=== PATIENT | male | born 1930 | race Caucasian/White ===

== ENCOUNTER 2016-02-10 15:56 | Observation (INO) | payer MEDICARE ==
[~2016-02-10] VITALS: Ht 177.8 cm; Wt 85.4 kg
[~2016-02-10 15:56] MED LIST: ASPI325T32 PO; CEPH500C PO; CLOP75TA3 PO; METO25TA6 PO; PRA20 PO
[2016-02-10 15:59] VITALS: PULSE 77; RESP 18; O2SAT 98
[2016-02-10 16:44] LABS: BASOPHILS % (AUTO) 0.4 % (0-3); EOSINOPHILS % (AUTO) 3.3 % (0-5); MONOCYTES % (AUTO) 10.4 % (4-12); Mean Corpuscular Hemoglobin 31.6 pg (27.0-35.0); Mean Corpuscular Volume 94.9 fL (81-100); NEUTROPHILS % (AUTO) 55.8 % (40-74); Platelet Count 263 bil/L (150-400)
--- NOTE | 2016-02-10 17:04 | DRSVH ---
PROCEDURE: CT BRAIN WITHOUT CONTRAST ([id number]) INDICATIONS: right sided weakness, confusion TECHNIQUE: Noncontrast 4.5 mm thick angled axial sections acquired from the foramen magnum to the vertex, with c oronal reformats. COMPARISON: None. FINDINGS: Image quality: Excellent. CSF spaces: Basal cisterns are patent. No extra-axial fluid collections. The ventricles are symmet марина in size and shape. Brain: No intracranial bleeds or masses. There is cerebral volume loss for age, with resultant vent ricular and sulcal prominence. There are periventricular and deep white matter chronic small vessel ischemic changes. There is intracranial internal carotid artery atherosclerosis. Skull and face: Calvarium and visualized facial bones appear intact, without suspicious lesions. Pos tsurgical changes noted in the right ocular globe; please correlate with surgical history. Soft tissu e density mass noted in the right ocular globe. Sinuses: Scattered opacities noted in the ethmoid air cells. mastoids are clear. IMPRESSION: 1. No acute intracranial disease process. 2. Postsurgical changes in the right ocular globe with soft tissue density mass within the globe. Ple ase correlate with clinical findings and surgical history. Dictated by: Selam Redding MD, PhD on 02/10/2016 at 17:03 Approved by: Selam Redding MD, PhD on 02/10/2016 at 17:03
[2016-02-10 17:12] LABS: INR 0.94 ratio
[2016-02-10 17:21] LABS: TROPONIN T < 0.010 ug/L (0.0-0.011)
--- NOTE | 2016-02-10 17:41 | ED.REPORT ---
HPI-Neurologic Deficit Date of Service Feb 10, 2016 ED Provider: Gary Chapman DO The patient is an 85 year old male with history of coronary artery disease s/p stenting who was sent to the emergency department by Dr. Porter who was concerned the patient may have had a stroke. The patient has experienced dizziness over the last 3 days. This morning he was unable to get out of bed due to right upper and lower extremity weakness. His symptoms have been intermittent throughout the day. He has intermittently throughout the day required his walker to ambulate. He is currently feeling normal. He has been taking Cipro for the last 3 weeks for prostatitis. He stopped his aspirin when he was started on this antibiotic. Nursing Notes Stated Complaint: POSSIBLE STROKE Chief Complaint: Stroke Symptoms Nursing Notes Reviewed: Yes Allergies: Coded Allergies: Penicillins (Verified Allergy, Unknown, 02/10/16) Scheduled Aspirin (Aspirin) 81 Mg Tablet 81 MG PO DAILY Ciprofloxacin (Cipro) 500 Mg Tablet 500 MG PO BID Metoprolol Tartrate (Metoprolol Tartrate) 25 Mg Tablet 12.5 MG PO BID Pravastatin (Pravastatin) 40 Mg Tablet 40 MG PO DAILY Tamsulosin (Flomax) 0.4 Mg Capsule 0.4 MG PO DAILY General Time Seen by Provider: 17:42 Chief Complaint Other (right-sided weakness) Hx Obtained From: Patient Arrived By: Wheelchair Sudden in Onset?: Yes Onset Occurred: 13 - 16 hours ago Symptom Duration: Intermittent Progression Since Onset: Intermittent Severity: Current: No pain currently Severity: Maximum: No pain Additional Notes: +dizziness Pertinent Negative: Pt denies other symptoms Recent Healthcare: No recent hospitalization Similar Sx Previous: No Risk Factors NIH Stroke Scale Level of Consciousness: Alert and responsive (0) Ask Month & Age: Both questions right (0) Open/Close Eyes/Hand Contingents Supervisor: Performs both tasks (0) Horizontal EO Movements: None (0) Visual [place]: No visual loss (0) Facial Palsy: Normal symmetry (0) Right Arm Motor Drift (10s): No drift 10 sec (0) Left Arm Motor Drift (10s): No drift 10 sec (0) Right Leg Motor Drift (5s): No drift 5 sec (0) Left Leg Motor Drift (5s): No drift 5 sec (0) Limb Ataxia FNF/Heel-Kendall: No ataxia (0) Sensation (Arms/Legs/Face): No sensory loss (0) Language Aphasia: No aphasia, normal (0) Dysarthria: No dysarthria, normal (0) Extinction/Inattention: No exctinct/inattent (0) NIHSS Score: 0 Time NIHSS Performed: 17:58 Date NIHSS Performed: Feb 10, 2016 Past Medical History Past Medical History Notes: It Consulting Manager: Dr. Santoyo Past Medical History Coronary artery stent s/p stenting Prostate issues Past Surgical History Cardiac stenting Bilateral shoulder surgery Family History Noncontributory Smoking History Former Smoker Social History Alcohol Use: 1-3 per day Drug Use: Denies drug use Other Social History: Good social support, , Local resident Ambulatory Status Independent Review of Systems Constitutional: Denies: Chills, Fever Respiratory: Denies: Non-productive cough, Shortness of breath Cardiovascular: Denies: Chest pain GI: Denies: Abdominal pain, Vomiting Skin: Denies Rash Neurologic: Reports: Dizziness, Focal weakness, Problem walking, Denies: Headache Complete sys rev & neg: except as marked. Physical Exam Initial Vital Signs Vital Signs (First) Date Time Temp Pulse Resp B/P Pulse Ox O2 Delivery O2 Flow Rate FiO2 02/10/16 15:59 37.0 77 18 98 Room Air 02/10/16 19:13 144/69 Initial VS: Reviewed ENT: Mucous membranes moist, Conjunctiva normal, No scleral icterus Neck: Supple, Non-tender, Full range of motion Abdomen / GI: Soft, Non-tender, No guarding, No rebound, No distention Lymphatic: No lymphadenopathy Extremities: Vascular intact, Neuro intact, No swelling, No tenderness Skin: Warm, Dry, No cyanosis Psychiatric: Mood/affect normal, Behavior normal, Normal thought content General/Constitutional: Awake, Alert Head / Eyes: Atraumatic, Normocephalic, PERRL, EOMI, No nystagmus Respiratory / Chest: Atraumatic, Breath sounds NL, Breath sounds = bilat, No respiratory distress, No rales, No rhonchi, No wheezing Cardiovascular: Heart rate NL, Regular rhythm, Heart sounds NL, No murmurs, No rubs, Peripheral circulation NL Neurologic: Oriented X3, Speech NL, No motor deficits, No sensory deficits, CN II - XII intact, Cerebellar NL, Memory NL SEE NIH STROKE SCALE ABOVE FOR MORE DETAIL, score: 0 Interpretation & Diagnostics Lab Results Interpretation Result Diagram: 02/10/16 1635 02/10/16 1635 Test 02/10/16 16:35 02/10/16 18:45 White Blood Count 4.5th/mm3 (3.8-10.1) Red Blood Count 4.31mil/mm3 (4.40-5.80) Hemoglobin 13.6g/dL (13.8-17.2) Hematocrit 40.9% (41.0-50.0) Mean Corpuscular Volume 94.9fL (81-100) Mean Corpuscular Hemoglobin 31.6pg (27.0-35.0) Mean Corpuscular Hemoglobin Concent 33.3% (32.0-37.0) Red Cell Distribution Width 12.6% (12.3-15.4) Platelet Count 263bil/L (150-400) Neutrophils (%) (Auto) 55.8% (40-74) Lymphocytes (%) (Auto) 29.9% (14-46) Monocytes (%) (Auto) 10.4% (4-12) Eosinophils (%) (Auto) 3.3% (0-5) Basophils (%) (Auto) 0.4% (0-3) Prothrombin Time 10.0sec (8.1-12.5) Prothromb Time International Ratio 0.94ratio Activated Partial Thromboplast Time 26.1sec (22.8-33.0) Sodium Level 139mEq/L (134-144) Potassium Level 4.3mEq/L (3.5-5.2) Chloride Level 100mEq/L (97-108) Carbon Dioxide Level 28mmol/L (18-29) Blood Urea Nitrogen 14mg/dL (8-27) Creatinine 0.78mg/dL (0.76-1.27) Estimat Glomerular Filtration Rate 101mL/min (>59) Glucose Level 117mg/dL (60-99) Calcium Level 9.4mg/dL (8.5-10.1) Total Bilirubin 0.3mg/dL (0.0-1.2) Aspartate Amino Transf (AST/SGOT) 28U/L (0-50) Alanine Aminotransferase (ALT/SGPT) 28U/L (0-44) Alkaline Phosphatase 81U/L (25-160) Troponin T < 0.010ug/L (0.0-0.011) Total Protein 7.4g/dL (6.4-8.4) Albumin 4.2g/dL (3.4-5.0) Hold Jasso Top Tube Received (Received) Urine Color Bloody (YELLOW) Urine Appearance Hazy (CLEAR,HAZY) Urine pH 6.0 (5.0-8.0) Urine Specific [place] 1.015 (1.003-1.035) Urine Protein Negativemg/dL (NEG,TRACE) Urine Glucose (UA) Negativemg/dL (NEGATIVE) Urine Ketones Negativemg/dL (NEGATIVE) Urine Occult Blood Large (NEGATIVE) Urine Nitrite Negative (NEGATIVE) Urine Bilirubin Negative (NEGATIVE) Urine Urobilinogen Normalmg/dL (NORMAL) Urine Leukocyte Esterase Negative (NEGATIVE) Urine RBC 11-50/hpf (0-2) Urine WBC 0-5/hpf (0-5) Urine Epithelial Cells None/hpf (NONE-MOD) Urine Crystals None seen (NONE SEEN) Urine Bacteria Few/hpf (NONE-FEW) Urine Hyaline Casts None/lpf (NONE) Urine Granular Casts None seen (NONE SEEN) Urine Waxy Casts None seen (NONE SEEN) Urine Red Blood Cell Casts None seen (NONE SEEN) Urine White Blood Cell Casts None seen (NONE SEEN) Urine Mucus None seen (None Seen) Urine Trichomonas None seen (NONE SEEN) Urine Yeast None (NONE SEEN) Urinalysis Comment None Urine Culture Reflexed Indicated ECG Interpretation ECG Interpretation: Sinus rhythm with a rate of 69 Time: 18:02 Interpreted by: ED physician X-Ray Chest Interpretation Chest Xray Interpretation: IMPRESSION: No acute cardiopulmonary disease process. Dictated by: Selam Redding MD, PhD on 02/10/2016 at 19:03 Interpretation / Wet Read by: Interpret - Radiologist CT Head Interpretation IMPRESSION: 1. No acute intracranial disease process. 2. Postsurgical changes in the right ocular globe with soft tissue density mass within the globe. Please correlate with clinical findings and surgical history. Dictated by: Selam Redding MD, PhD on 02/10/2016 at 17:03 Study: Head CT no contrast Interpretation / Wet Read by: Interpret - Radiologist Re-Eval/Medical Decision Med Decision/Clinical Course Concern for TIA, patient will be admitted. Source of Hx: Old records Re-Evaluation/Progress : Time of Eval: 18:00 Re-Evaluation/Progress Note: Discussed plan for admission. All questions were addressed. Consultation : Referral / Consult Name: Kaylah Avila MD Consulted With: Hospitalist Call Returned at: 19:26 Stitch Bonding Machine Operator: Will see patient, Agrees with eval, Agrees with plan, Accepts admit Counseled Regarding: Diagnosis, Lab results, Need for admission Discharge & Departure Impression: Primary Impression: Transient ischemic attack Transient cerebral ischemia type: unspecified Qualified Code: G45.9 - Transient cerebral ischemic attack, unspecified Disposition: ADMITTED TO HOSPITAL Discharge Condition All VS Reviewed: Yes Condition: Stable Referrals: Shaylee Santoyo MD, Eric R MD Scribe Attestation Portions of this note were transcribed by Elvia Byrne. I, Dr. Chapman personally performed the history, physical exam and medical decision-making; I reviewed and confirmed the accuracy of the information in the transcribed note. Signed by: Catherine Alonzo, 02/10/16 and 1930. copies to: Shaylee Santoyo MD; Christophe Porter MD, Timothy S DO Feb 10, 2016 17:41 Elvia Byrne Feb 10, 2016 17:48
[2016-02-10] MEDS ORDERED: 0.9% Sodium Chloride 500 ML IV ONE (18:10)
[2016-02-10] MEDS ORDERED: TAMS0.4C98 PO (18:46)
[2016-02-10] MEDS ORDERED: ASPI-973 PO (18:46)
[2016-02-10] MEDS ORDERED: PRAV40TA PO (18:46)
[2016-02-10] MEDS ORDERED: CIPR-231 PO (18:46)
--- NOTE | 2016-02-10 19:04 | DRSVH ---
PROCEDURE: X-RAY CHEST, TWO VIEWS ([id number]) INDICATIONS: Transient ischemic Accident TECHNIQUE: 2 views of the chest were acquired. COMPARISON: None. FINDINGS: Surgical changes and devices: None. Lungs and pleura: No pleural effusions or pneumothorax. Lungs are clear. Mediastinum: Mediastinal contours are normal. Heart size is normal. Bones and chest wall: No suspicious bony abnormalities. Soft tissues appear unremarkable. IMPRESSION: No acute cardiopulmonary disease process. Dictated by: Selam Redding MD, PhD on 02/10/2016 at 19:03 Approved by: Selam Redding MD, PhD on 02/10/2016 at 19:03
[2016-02-10 19:13] VITALS: BP 144/69; PULSE 65; RESP 18; O2SAT 95
[2016-02-10 19:14] LABS: APPEARANCE,URINE HAZY (CLEAR,HAZY); COLOR,URINE BLOODY (YELLOW); OCCULT BLOOD,URINE LARGE (NEGATIVE); UROBILINOGEN,URINE NORMAL (NORMAL)
[2016-02-10] MEDS ORDERED: Ondansetron 2 mg/mL 2 mL Inj IVPUSH PRN (19:30)
[2016-02-10] MEDS ORDERED: Alum-Mag Hydrox-Simeth 30 mL Suspension PO PRN ×2 (19:30→20:45)
[2016-02-10] MEDS ORDERED: Ondansetron 2 mg/mL 2 mL Inj IV PRN (20:45)
[2016-02-10] MEDS ORDERED: Polyethylene Glycol (PEG) 17 Gm Powder PO PRN (20:45)
[2016-02-10 21:14] VITALS: BP 182/81; PULSE 68; RESP 20; O2SAT 92
--- NOTE | 2016-02-10 21:17 | PCM.HPMED ---
Subjective Date of Service Feb 10, 2016 Primary Provider: Admitting Physician: Kaylah Avila MD Primary Care Physician: Isaac Barrios MD Attending Physician: Kaylah Avila MD Admit Status: From the Emergency Department, 23-Hour Observation Chief Complaint: Woke up this morning with right sided weakness History of Present Illness: This is an 85-year-old male with a history of coronary artery disease who presented to his primary care doctor's office Dr. Porter with complaints of feeling lightheaded over the past 3 days and woke up this morning with right arm and leg weakness. By the time he presented to the emergency room he had no deficits. Patient did stop his aspirin for the past 2 weeks as he was placed on Cipro for prostatitis over the last 3 weeks. Denies any chest pain denies any fevers or chills. Denies any slurred speech or visual disturbances. Any prior history of similar. Denies headache. Eyes any recent falls or trauma. He notes that he did require using his walker to ambulate better because of the right sided weakness. Evaluation in the emergency room includes CT scan of head without contrast which reveals no acute intracranial disease process. There are postsurgical changes in the right ocular globe with soft tissue density mass within the globe. Patient reportedly did have prior surgery there. Review of Systems: All other review of systems are reviewed and are negative. Allergies Coded Allergies: Penicillins (Verified Allergy, Unknown, 02/10/16) Home Medications Scheduled Aspirin (Aspirin) 81 Mg Tablet 81 MG PO DAILY Ciprofloxacin (Cipro) 500 Mg Tablet 500 MG PO BID Metoprolol Tartrate (Metoprolol Tartrate) 25 Mg Tablet 12.5 MG PO BID Pravastatin (Pravastatin) 40 Mg Tablet 40 MG PO DAILY Tamsulosin (Flomax) 0.4 Mg Capsule 0.4 MG PO DAILY PMH Recent history of prostatitis Hyperlipidemia History of coronary artery disease with stenting History of bilateral shoulder surgery Family History Patient denies any family history of cardiac or neurovascular disease. Social History Hx Alcohol Use: Yes ("2-3 drinks a day") Hx Substance Use: No Smoking Status: Former Smoker Living Arrangement: with Family Exam Vital Signs Vital Sign - Last Date Time Temp Pulse Resp B/P Pulse Ox O2 Delivery O2 Flow Rate FiO2 02/10/16 19:13 65 18 144/69 95 Room Air 02/10/16 15:59 37.0 Exam Constitutional: Elderly man in no acute distress Head: Normocephalic atraumatic Eyes: PERRLA DC, EOMI Mouth: No lesions Neck: Carotids 2+ over 4 without bruits bilaterally Chest: Clear to auscultation Cor: Regular rate and rhythm S1-S2 without murmur Abdomen: Soft nontender bowel sounds present Extremities: No pedal edema Skin: No rashes Psych: Mood and affect are appropriate Neuro: Alert and oriented 3, motor and sensory are intact bilaterally. Lab and Diagnostics Labs Laboratory Tests 72 Hours Test 02/10/16 16:35 02/10/16 18:45 White Blood Count 4.5th/mm3 (3.8-10.1) Red Blood Count 4.31mil/mm3 (4.40-5.80) Hemoglobin 13.6g/dL (13.8-17.2) Hematocrit 40.9% (41.0-50.0) Mean Corpuscular Volume 94.9fL (81-100) Mean Corpuscular Hemoglobin 31.6pg (27.0-35.0) Mean Corpuscular Hemoglobin Concent 33.3% (32.0-37.0) Red Cell Distribution Width 12.6% (12.3-15.4) Platelet Count 263bil/L (150-400) Neutrophils (%) (Auto) 55.8% (40-74) Lymphocytes (%) (Auto) 29.9% (14-46) Monocytes (%) (Auto) 10.4% (4-12) Eosinophils (%) (Auto) 3.3% (0-5) Basophils (%) (Auto) 0.4% (0-3) Prothrombin Time 10.0sec (8.1-12.5) Prothromb Time International Ratio 0.94ratio Activated Partial Thromboplast Time 26.1sec (22.8-33.0) Sodium Level 139mEq/L (134-144) Potassium Level 4.3mEq/L (3.5-5.2) Chloride Level 100mEq/L (97-108) Carbon Dioxide Level 28mmol/L (18-29) Blood Urea Nitrogen 14mg/dL (8-27) Creatinine 0.78mg/dL (0.76-1.27) Estimat Glomerular Filtration Rate 101mL/min (>59) Glucose Level 117mg/dL (60-99) Calcium Level 9.4mg/dL (8.5-10.1) Total Bilirubin 0.3mg/dL (0.0-1.2) Aspartate Amino Transf (AST/SGOT) 28U/L (0-50) Alanine Aminotransferase (ALT/SGPT) 28U/L (0-44) Alkaline Phosphatase 81U/L (25-160) Troponin T < 0.010ug/L (0.0-0.011) Total Protein 7.4g/dL (6.4-8.4) Albumin 4.2g/dL (3.4-5.0) Hold Jasso Top Tube Received (Received) Urine Color Bloody (YELLOW) Urine Appearance Hazy (CLEAR,HAZY) Urine pH 6.0 (5.0-8.0) Urine Specific [place] 1.015 (1.003-1.035) Urine Protein Negativemg/dL (NEG,TRACE) Urine Glucose (UA) Negativemg/dL (NEGATIVE) Urine Ketones Negativemg/dL (NEGATIVE) Urine Occult Blood Large (NEGATIVE) Urine Nitrite Negative (NEGATIVE) Urine Bilirubin Negative (NEGATIVE) Urine Urobilinogen Normalmg/dL (NORMAL) Urine Leukocyte Esterase Negative (NEGATIVE) Urine RBC 11-50/hpf (0-2) Urine WBC 0-5/hpf (0-5) Urine Epithelial Cells None/hpf (NONE-MOD) Urine Crystals None seen (NONE SEEN) Urine Bacteria Few/hpf (NONE-FEW) Urine Hyaline Casts None/lpf (NONE) Urine Granular Casts None seen (NONE SEEN) Urine Waxy Casts None seen (NONE SEEN) Urine Red Blood Cell Casts None seen (NONE SEEN) Urine White Blood Cell Casts None seen (NONE SEEN) Urine Mucus None seen (None Seen) Urine Trichomonas None seen (NONE SEEN) Urine Yeast None (NONE SEEN) Urinalysis Comment None Urine Culture Reflexed Indicated Result Diagram: 02/10/16 1635 02/10/16 163 X-Rays, CTs and MRIs Patient Name: ARSENIO PALMER MR#: [id number] Location: [facility] [place] Ordering Phys: Gary Chapman DO Date of Service: 02/10/161806 PROCEDURE: X-RAY CHEST, TWO VIEWS ([id number]) INDICATIONS: Transient ischemic Accident TECHNIQUE: 2 views of the chest were acquired. COMPARISON: None. FINDINGS: Surgical changes and devices: None. Lungs and pleura: No pleural effusions or pneumothorax. Lungs are clear. Mediastinum: Mediastinal contours are normal. Heart size is normal. Bones and chest wall: No suspicious bony abnormalities. Soft tissues appear unremarkable. IMPRESSION: No acute cardiopulmonary disease process. Dictated by: Selam Redding MD, PhD on 02/10/2016 at 19:03 Approved by: Selam Redding MD, PhD on 02/10/2016 at 19:03 Patient Name: ARSENIO PALMER MR#: [id number] Location: [facility] [place] Ordering Phys: ANA NEWBY MD Date of Service: 02/10/16 1608 PROCEDURE: CT BRAIN WITHOUT CONTRAST ([id number]) INDICATIONS: right sided weakness, confusion TECHNIQUE: Noncontrast 4.5 mm thick angled axial sections acquired from the foramen magnum to the vertex, with coronal reformats. COMPARISON: None. FINDINGS: Image quality: Excellent. CSF spaces: Basal cisterns are patent. No extra-axial fluid collections. The ventricles are symmetric in size and shape. Brain: No intracranial bleeds or masses. There is cerebral volume loss for age , with resultant ventricular and sulcal prominence. There are periventricular and deep white matter chronic small vessel ischemic changes. There is intracranial internal carotid artery atherosclerosis. Skull and face: Calvarium and visualized facial bones appear intact, without suspicious lesions. Postsurgical changes noted in the right ocular globe; please correlate with surgical history. Soft tissue density mass noted in the right ocular globe. Sinuses: Scattered opacities noted in the ethmoid air cells. mastoids are clear. IMPRESSION: 1. No acute intracranial disease process. 2. Postsurgical changes in the right ocular globe with soft tissue density mass within the globe. Please correlate with clinical findings and surgical history. Dictated by: Selam Redding MD, PhD on 02/10/2016 at 17:03 Approved by: Selam Redding MD, PhD on 02/10/2016 at 17:03 12-lead ECG Sinus rhythm at a rate of 69 ,no acute abnormalities identified. Assessment & Plan # Right sided hemiparesis, acute, present on admission but resolved Possible TIA and will place on TIA protocol. Was not taking aspirin over the past few weeks so we will reinitiate. Change from Pravachol to atorvastatin as the antihyperlipidemic agent. Check CT A of head and neck, MRI of brain without contrast, echocardiogram Place on telemetry # Hyperlipidemia, present on admission, chronic We will switch from Pravachol to atorvastatin as can be more potent # Recent history of prostatitis, present on admission, subacute Continue with Cipro as ordered by primary care Continue with Flomax also # Hypertension, present on admission, chronic Continue with metoprolol # DVT prophylaxis Placed on subcutaneous Lovenox prophylactic # CODE STATUS Full code GI Prophylaxis: Not indicated VTE Prophylaxis: Sub-Q Enoxaparin VTE Mechanical Devices: Intermittant Pneumatic CD Time spent 60 minutes Kaylah Avila MD Feb 10, 2016 21:17
[2016-02-10] MEDS ORDERED: 0.9% Sodium Chloride 1,000 ML IV SCH (22:30)
[2016-02-11] VITALS (8 sets, daily range): BP systolic 132–155; BP diastolic 67–80; PULSE 56–76; RESP 18–20; O2SAT 95–99
--- NOTE | 2016-02-11 03:36 | NUR ---
[place] [facility] [place]24 Patient arrived at 2230. alert and oriented. able to make needs known. no deficits. 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 MD notified. patient upset he could not have water. MD states he can't have water, IVF ordered. reinforced to patient that he will have swallow screen in AM and we will keep him hydrated with IVF. provided patient with swabs and chap stick for oral care. bed alarm on for safety. will continue to monitor.
--- NOTE | 2016-02-11 09:54 | NUR ---
Evaluation completed. Please go to "Notes" then click on "Assessments and Notes" (bottom left corner of screen). Then select appropriate discipline tab on top of screen.
--- NOTE | 2016-02-11 10:48 | DRSVH ---
PROCEDURE: CT ANGIO HEAD AND NECK (P) INDICATIONS: 85 year-old male with stroke symptoms. TECHNIQUE: Pre-contrast 4.5 mm thick sections acquired from the foramen magnum to the vertex. After the adminis tration of intravenous contrast, 1 mm thick sections acquired from the aortic arch through the [place] of [place]. Post-contrast 4.5 mm thick sections then re-acquired from the foramen magnum to the vert ex. 3-dimensional aeubjbe-rnldpqowp-aspzxqvpbb (MIP) and/or volume rendering reformats were acquired of the central intracranial vasculature and neck separately. For radiation dose reduction, the foll owing was used: automated exposure control, adjustment of mA and/or kV according to patient size. COMPARISON: [facility], CT, CT BRAIN WO CON, 02/10/2016, 16:52. FINDINGS: Image quality: Excellent. BRAIN: CSF spaces: Ventricles are normal in size and shape. Basal cisterns are patent. No extra-axial flu id collections. Brain: No midline shift. No intracranial bleeds or masses. There is moderate periventricular and de ep white matter chronic small vessel ischemic change. Skull and face: Calvarium and facial bones appear intact, without suspicious lesions. Right globe ag ain demonstrates dependent hyperdensity, with overlying surgical clips. Sinuses: Patchy bilateral ethmoid sinus fluid is present. Other visualized sinuses and mastoids are c lear. HEAD CT ANGIOGRAPHY: Anterior circulation: Intracranial internal carotid arteries are normal in size and flow. The flow within the paired anterior cerebral arteries is normal and symmetric. The flow within the middle cer ebral arteries is normal and symmetric. The anterior communicating artery is seen. No aneurysms are seen. Posterior circulation: Visualized portions of the vertebral arteries demonstrate normal caliber, and join to form a normal appearing basilar artery. There is short segment high-grade stenosis of the le ft P1 segment the on coronal image 112. The right posterior cerebral artery appears patent. No aneury sms are seen. NECK CT ANGIOGRAPHY: Carotid system: There is a bovine aortic arch, with common origin to the left common carotid and brac hiocephalic arteries. The origins of the common carotid arteries appear patent. The common carotid a rteries demonstrate normal caliber and courses. The bifurcation regions both demonstrate scattered a therosclerotic calcification, with less than 50% luminal stenoses of both proximal internal carotid a rteries. The internal carotid arteries demonstrate normal calibers and courses more superiorly. Posterior circulation: The origins of the codominant vertebral arteries both appear widely patent. The more superior extracranial portions of both vertebral arteries also demonstrate normal courses an d calibers. They join to form a normal appearing basilar artery. Soft tissues: Visualized neck soft tissues demonstrate no suspicious abnormalities. Visualized lung apices demonstrate scattered calcified granulomas bilaterally. Bones: No suspicious bony lesions. Visualized cervical spine appears normally aligned, with moderat e lower cervical spine disc degeneration. IMPRESSION: 1. 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 2. Less than 50% luminal stenoses affect the origins of the internal carotid arteries from partially calcified atherosclerotic plaque. 3. Asymmetric dependent density within the right orbital globe as before may represent postoperative change versus dependent hemorrhage. 4. Moderate periventricular and deep white matter chronic small vessel ischemic change. Dictated by: Sd Jacobson M.D. on 02/11/2016 at 10:46 Approved by: Sd Jacobson M.D. on 02/11/2016 at 10:46
--- NOTE | 2016-02-11 12:15 | DRSVH ---
PROCEDURE: MRI BRAIN WITHOUT CONTRAST ([id number]) INDICATIONS: tia TECHNIQUE: Non-contrast axial T1 spin echo, axial T2 fast spin echo, sagittal and axial FLAIR, coronal T2 fast s pin echo, axial gradient echo, axial diffusion and ADC through the brain. COMPARISON: None. FINDINGS: Image quality: Excellent. CSF spaces: Ventricles appear symmetric in size and shape. Basal cisterns are patent. No extra-axi al fluid collections. Brain: No intracranial bleeds or mass effects. There is cerebral volume loss for age. There are pe riventricular and deep white matter chronic small vessel ischemic changes. Brainstem appears normal. Diffusion-weighted images show multiple subcentimeter areas of acute ischemia involving the left fr ontoparietal lobe. No chronic ischemic insults. Normal intravascular flow voids are present. Skull and face: Calvarial bone marrow is normal in signal. Orbits are normal. Sinuses: Sinuses and mastoids are clear except for mucus retention cyst or polyp in the left maxilla ry sinus. IMPRESSION: Multiple small, subcentimeter foci of acute ischemia involving the left frontoparietal lobe. Crescentic, signal change involving the retina of the right globe. Recommend close clinical correlati on with ophthalmologic examination to exclude the possibility of retinal detachment. Background scattered white matter signal changes, nonspecific however statistically represent chronic microvascular ischemic disease. Dictated by: Rajendra Sullivan M.D. on 02/11/2016 at 12:04 Approved by: Rajendra Sullivan M.D. on 02/11/2016 at 12:04
--- NOTE | 2016-02-11 16:00 | NUR ---
Observation information provided and explained.
[2016-02-11 16:03] LABS: BASOPHILS % (AUTO) 0.6 % (0-3); EOSINOPHILS % (AUTO) 3.6 % (0-5); MONOCYTES % (AUTO) 12.5 % (4-12); Mean Corpuscular Hemoglobin 32.3 pg (27.0-35.0); Mean Corpuscular Volume 95.6 fL (81-100); NEUTROPHILS % (AUTO) 49.7 % (40-74); Platelet Count 244 bil/L (150-400)
--- NOTE | 2016-02-11 16:27 | NUR ---
Social Work-initial assessment/readiness for discharge: Data:See initial assessment. Pt is a 85 y/o male who was admitted on 02/10/16 for TIA per H&P. Pt's insurance is [employer] and [employer] and PCP is Isaac Barrios MD. EMR Reviewed. SW met with pt at bedside to discuss discharge planning, SW role explained. Pt resides at home with his where he remains independent with ADLS. Pt does not use any DME and drives. Pt has no HH or SNF history. Pt has no [place] [facility] care or [place] benefits. SW discussed DPOA/ advanced directive, pt states he has not completed this and is not interested in information. ST has cleared pt for home. Pt states his will provide transport home. SW provided phone number and plan on white board in room. No anticipated discharge needs. SW will continue to follow if needs arise. Assessment:Pt who is independent at baseline. Plan:Pt to discharge home when medically stable via POV. No anticipated discharge needs. SW will continue to follow if needs arise. SUZY Palomares Addendum: 02/11/16 at 1631 by WILMER PEREZ Amended: Links added.
--- NOTE | 2016-02-11 17:47 | PCM.PNMED ---
Subjective Date of Service Feb 11, 2016 Subjective Pt reports that he is feeling well, and feels back to baseline. Pt denies any residual weakness in his right upper or lower extremity. Pt denies any numbness or tingling in his extremities. He reports full strength and range of motion of his extremities. Pt denies any headache, blurred or double vision. Pt denies any chest pain, shortness of breath, nausea, vomiting, diarrhea or diaphoresis. Pt is eager to have tests and go home. Exam Vital Signs Vital Sign - Last Date Time Temp Pulse Resp B/P Pulse Ox O2 Delivery O2 Flow Rate FiO2 02/11/16 16:59 36.7 71 18 132/67 97 Room Air Intake and Output 02/10/16 02/10/16 02/11/16 Cumulative From/Thru 15:00 23:00 07:00 02/10/16 15:59 - 02/11/16 05:07 Intake Total 500 ml 561 ml 1061 ml Output Total 480 ml 480 ml Balance 500 ml 81 ml 581 ml Intake Oral 0 ml 0 ml IV Total 500 ml 561 ml 1061 ml Output Urine Total 480 ml 480 ml Exam General: No acute distress, well-developed, well-nourished, appropriately interactive HEENT: Normocephalic, atraumatic. Pupils equal, round, and reactive to light and accommodation. Anicteric sclerae, moist conjunctivae, and no lid lag. Oropharynx free of erythema and cobble stoning with moist mucosa. Neck: Supple with full range of motion. No jugular venous distension. No bruits. No lymphadenopathy Cardiovascular: Regular rate and rhythm with no murmurs, rubs, or gallops appreciated Pulmonary: Clear to auscultation bilaterally with no crackles, wheezes, or rhonchi. Normal respiratory effort with no use of accessory muscles. Abdomen: Bowel tones present. Soft, nontender, nondistended. Extremities: No clubbing, cyanosis, edema, or lymphadenopathy appreciated. Skin: Normal temperature, turgor, and texture; no rash, ulcers, or subcutaneous nodules appreciated. Neurological: Cranial nerves grossly intact. Normal muscle strength, tone, and bulk. Reflexes, coordination, and sensory function within normal limits. No known gait impairment. Psychiatric: Normal mood and affect. Alert and oriented to person, place, and time. IVs and Medications Medications Reviewed: Medications were reviewed in detail Lab and Diagnostics Result Diagram: 02/11/16 1445 02/11/16 1445 X-Rays, CTs and MRIs PROCEDURE: CT ANGIO HEAD AND NECK (P) FINDINGS: Image quality: Excellent. BRAIN: CSF spaces: Ventricles are normal in size and shape. Basal cisterns are patent. No extra-axial fluid collections. Brain: No midline shift. No intracranial bleeds or masses. There is moderate periventricular and deep white matter chronic small vessel ischemic change. Skull and face: Calvarium and facial bones appear intact, without suspicious lesions. Right globe again demonstrates dependent hyperdensity, with overlying surgical clips. Sinuses: Patchy bilateral ethmoid sinus fluid is present. Other visualized sinuses and mastoids are clear. HEAD CT ANGIOGRAPHY: Anterior circulation: Intracranial internal carotid arteries are normal in size and flow. The flow within the paired anterior cerebral arteries is normal and symmetric. The flow within the middle cerebral arteries is normal and symmetric. The anterior communicating artery is seen. No aneurysms are seen. Posterior circulation: Visualized portions of the vertebral arteries demonstrate normal caliber, and join to form a normal appearing basilar artery. There is short segment high-grade stenosis of the left P1 segment the on coronal image 112. The right posterior cerebral artery appears patent. No aneurysms are seen. NECK CT ANGIOGRAPHY: Carotid system: There is a bovine aortic arch, with common origin to the left common carotid and brachiocephalic arteries. The origins of the common carotid arteries appear patent. The common carotid arteries demonstrate normal caliber and courses. The bifurcation regions both demonstrate scattered atherosclerotic calcification, with less than 50% luminal stenoses of both proximal internal carotid arteries. The internal carotid arteries demonstrate normal calibers and courses more superiorly. Posterior circulation: The origins of the codominant vertebral arteries both appear widely patent. The more superior extracranial portions of both vertebral arteries also demonstrate normal courses and calibers. They join to form a normal appearing basilar artery. Soft tissues: Visualized neck soft tissues demonstrate no suspicious abnormalities. Visualized lung apices demonstrate scattered calcified granulomas bilaterally. Bones: No suspicious bony lesions. Visualized cervical spine appears normally aligned, with moderate lower cervical spine disc degeneration. IMPRESSION: 1. 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 2. Less than 50% luminal stenoses affect the origins of the internal carotid arteries from partially calcified atherosclerotic plaque. 3. Asymmetric dependent density within the right orbital globe as before may represent postoperative change versus dependent hemorrhage. 4. Moderate periventricular and deep white matter chronic small vessel ischemic change. Dictated by: Sd Jacobson M.D. on 02/11/2016 at 10:46 Approved by: Sd Jacobson M.D. on 02/11/2016 at 10:46 PROCEDURE: MRI BRAIN WITHOUT CONTRAST ([id number]) FINDINGS: Image quality: Excellent. CSF spaces: Ventricles appear symmetric in size and shape. Basal cisterns are patent. No extra-axial fluid collections. Brain: No intracranial bleeds or mass effects. There is cerebral volume loss for age. There are periventricular and deep white matter chronic small vessel ischemic changes. Brainstem appears normal. Diffusion-weighted images show multiple subcentimeter areas of acute ischemia involving the left frontoparietal lobe. No chronic ischemic insults. Normal intravascular flow voids are present. Skull and face: Calvarial bone marrow is normal in signal. Orbits are normal. Sinuses: Sinuses and mastoids are clear except for mucus retention cyst or polyp in the left maxillary sinus. IMPRESSION: Multiple small, subcentimeter foci of acute ischemia involving the left frontoparietal lobe. Crescentic, signal change involving the retina of the right globe. Recommend close clinical correlation with ophthalmologic examination to exclude the possibility of retinal detachment. Background scattered white matter signal changes, nonspecific however statistically represent chronic microvascular ischemic disease. Dictated by: Rajendra Sullivan M.D. on 02/11/2016 at 12:04 Approved by: Rajendra Sullivan M.D. on 02/11/2016 at 12:04 ADDENDUM: COMPARISON: [facility], CT, CT BRAIN WO CON, 02/10/2016, 16:52. The appearance of the right globe/retina was personally telephoned and discussed with the patient's hospitalist at the time of study interpretation 1230 hrs. 02/11/16. There is a reported history of prior right globe surgery, potentially explaining the appearance although recommend clinical correlation with physical examination findings Dictated by: Rajendra Sullivan M.D. on 02/11/2016 at 12:32 Approved by: Rajendra Sullivan M.D. on 02/11/2016 at 12:32 Date of Service: 02/10/16 3198 PROCEDURE: X-RAY CHEST, TWO VIEWS ([id number]) FINDINGS: Surgical changes and devices: None. Lungs and pleura: No pleural effusions or pneumothorax. Lungs are clear. Mediastinum: Mediastinal contours are normal. Heart size is normal. Bones and chest wall: No suspicious bony abnormalities. Soft tissues appear unremarkable. IMPRESSION: No acute cardiopulmonary disease process Dictated by: Selam Redding MD, PhD on 02/10/2016 at 19:03 Approved by: Selam Redding MD, PhD on 02/10/2016 at 19:03 Date of Service: 02/10/16 1608 PROCEDURE: CT BRAIN WITHOUT CONTRAST ([id number]) FINDINGS: Image quality: Excellent. CSF spaces: Basal cisterns are patent. No extra-axial fluid collections. The ventricles are symmetric in size and shape. Brain: No intracranial bleeds or masses. There is cerebral volume loss for age , with resultant ventricular and sulcal prominence. There are periventricular and deep white matter chronic small vessel ischemic changes. There is intracranial internal carotid artery atherosclerosis. Skull and face: Calvarium and visualized facial bones appear intact, without suspicious lesions. Postsurgical changes noted in the right ocular globe; please correlate with surgical history. Soft tissue density mass noted in the right ocular globe. Sinuses: Scattered opacities noted in the ethmoid air cells. mastoids are clear. IMPRESSION: 1. No acute intracranial disease process. 2. Postsurgical changes in the right ocular globe with soft tissue density mass within the globe. Please correlate with clinical findings and surgical history. Dictated by: Selam Redding MD, PhD on 02/10/2016 at 17:03 Approved by: Selam Redding MD, PhD on 02/10/2016 at 17:03 12-lead ECG Sinus rhythm at a rate of 69 ,no acute abnormalities identified. Assessment & Plan Acute right sided hemiparesis secondary to stroke per CTA, present on admission -CTA and MRI confirm pt had a stroke. No neurological deficits remaining. All symptoms resolved. -Discussed case with Dr Juarez of Neurology, appreciate her guidance and input. -Neurology Recommendations ----Pt is not a candidate for any interventions, and medical management is more appropriate in this case. ----Starting pt on Plavix 75mg and ASA 81mg daily for 3 months( [employer] trial) ----Pt to follow up with Dr Juarez in Neurology clinic, first available appointment ----Pt will need tighter control of blood pressure and management of risk factors( to be done outpatient by PCP) -Pt was not adherent with ASA due to report of drug interactions -Continue with atorvastatin, lipid panel pending, will assess if pt needs stronger lipid control -ECHO still pending. Concerned regarding enlarged left atrium and possible risk for Afib. Chronic hyperlipidemia, present on admission, chronic -Continue with atorvastatin, lipid panel pending, will assess if pt needs stronger lipid control Recent history of prostatitis, present on admission, subacute -Continue with Cipro as ordered by primary care -Continue with Flomax also Chronic hypertension, present on admission, chronic -Continue with metoprolol # DVT prophylaxis Placed on subcutaneous Lovenox prophylactic # CODE STATUS Full code GI Prophylaxis: Not indicated VTE Prophylaxis: Sub-Q Enoxaparin VTE Mechanical Devices: Intermittant Pneumatic CD Resuscitation Status: CPR: Attempt Resuscitation Attending Statement I reviewed this patients chart, discussed the plan of care with the resident and examined the patient. I agree with the above physical exam and assessment and plan. Lisset Roman DO Feb 11, 2016 17:47 Cayetano Kamara DO Feb 12, 2016 16:54
[2016-02-12] VITALS (7 sets, daily range): BP systolic 108–171; BP diastolic 54–82; PULSE 69–85; RESP 18–20; O2SAT 96–99
[2016-02-12 06:28] LABS: BASOPHILS % (AUTO) 0.7 % (0-3); EOSINOPHILS % (AUTO) 4.9 % (0-5); MONOCYTES % (AUTO) 11.5 % (4-12); Mean Corpuscular Hemoglobin 32.1 pg (27.0-35.0); Mean Corpuscular Volume 94.6 fL (81-100); NEUTROPHILS % (AUTO) 50.8 % (40-74); Platelet Count 232 bil/L (150-400)
--- NOTE | 2016-02-12 13:45 | NUR ---
Evaluation completed. Please go to "Notes" then click on "Assessments and Notes" (bottom left corner of screen). Then select appropriate discipline tab on top of screen.
[2016-02-12] MEDS ORDERED: CLOP75TA28 PO (16:47)
[2016-02-12] MEDS ORDERED: ASPI81TA3 PO (16:47)
--- NOTE | 2016-02-12 16:49 | NUR ---
Ambulating Pt ambulating independently in room and hallways, wishing to be discharged. Pt understands he is waiting to have echo done, but still anxious to get home. Symptoms resolved. Echo department aware.
--- NOTE | 2016-02-12 16:52 | PCM.DIMED ---
Discharge Instructions Date of Service Feb 12, 2016 Dates of Hospitalization Feb 10, 2016 at 20:29 Discharge Diagnosis Discharge Diagnosis Cerebrovascular accident Diet Heart Healthy Activity Limited until seen by PCP Call your provider Fever or Chills, Bleeding, Chest pain, Weakness (unilateral) Patient Instructions Follow-up plan Follow-up with Dr. Will at next available appointment Follow-up with PCP in: 1 week Cayetano Kamara DO Feb 12, 2016 16:52
--- NOTE | 2016-02-12 17:48 | NUR ---
Discharge Pt d/c home as ordered. IV removed, catheter intact, no bleeding. Provided pt with d/c paperwork and instructions, including carenotes and prescriptions. Also discussed positive stroke findings. Pt verbalizes understanding. Pt ambulated off jolly independently, home in private vehicle with family.
--- NOTE | 2016-02-12 18:29 | PCM.DC.MED ---
Discharge Summary Date of Service Feb 12, 2016 Dates of Hospitalization Date of Hospital Admission Feb 10, 2016 at 20:29 Date of Discharge: Feb 12, 2016 Providers: Admitting Physician: Kaylah Avila MD Primary Care Physician: Isaac Barrios MD Attending Physician: Kaylah Avila MD Diagnosis at Time of Discharge Diagnosis at Time of Discharge Cerebrovascular accident Procedures XRay, CTs & MRIs PROCEDURE: CT ANGIO HEAD AND NECK (P) FINDINGS: Image quality: Excellent. BRAIN: CSF spaces: Ventricles are normal in size and shape. Basal cisterns are patent. No extra-axial fluid collections. Brain: No midline shift. No intracranial bleeds or masses. There is moderate periventricular and deep white matter chronic small vessel ischemic change. Skull and face: Calvarium and facial bones appear intact, without suspicious lesions. Right globe again demonstrates dependent hyperdensity, with overlying surgical clips. Sinuses: Patchy bilateral ethmoid sinus fluid is present. Other visualized sinuses and mastoids are clear. HEAD CT ANGIOGRAPHY: Anterior circulation: Intracranial internal carotid arteries are normal in size and flow. The flow within the paired anterior cerebral arteries is normal and symmetric. The flow within the middle cerebral arteries is normal and symmetric. The anterior communicating artery is seen. No aneurysms are seen. Posterior circulation: Visualized portions of the vertebral arteries demonstrate normal caliber, and join to form a normal appearing basilar artery. There is short segment high-grade stenosis of the left P1 segment the on coronal image 112. The right posterior cerebral artery appears patent. No aneurysms are seen. NECK CT ANGIOGRAPHY: Carotid system: There is a bovine aortic arch, with common origin to the left common carotid and brachiocephalic arteries. The origins of the common carotid arteries appear patent. The common carotid arteries demonstrate normal caliber and courses. The bifurcation regions both demonstrate scattered atherosclerotic calcification, with less than 50% luminal stenoses of both proximal internal carotid arteries. The internal carotid arteries demonstrate normal calibers and courses more superiorly. Posterior circulation: The origins of the codominant vertebral arteries both appear widely patent. The more superior extracranial portions of both vertebral arteries also demonstrate normal courses and calibers. They join to form a normal appearing basilar artery. Soft tissues: Visualized neck soft tissues demonstrate no suspicious abnormalities. Visualized lung apices demonstrate scattered calcified granulomas bilaterally. Bones: No suspicious bony lesions. Visualized cervical spine appears normally aligned, with moderate lower cervical spine disc degeneration. IMPRESSION: 1. 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 2. Less than 50% luminal stenoses affect the origins of the internal carotid arteries from partially calcified atherosclerotic plaque. 3. Asymmetric dependent density within the right orbital globe as before may represent postoperative change versus dependent hemorrhage. 4. Moderate periventricular and deep white matter chronic small vessel ischemic change. Dictated by: Sd Jacobson M.D. on 02/11/2016 at 10:46 Approved by: Sd Jacobson M.D. on 02/11/2016 at 10:46 PROCEDURE: MRI BRAIN WITHOUT CONTRAST ([id number]) FINDINGS: Image quality: Excellent. CSF spaces: Ventricles appear symmetric in size and shape. Basal cisterns are patent. No extra-axial fluid collections. Brain: No intracranial bleeds or mass effects. There is cerebral volume loss for age. There are periventricular and deep white matter chronic small vessel ischemic changes. Brainstem appears normal. Diffusion-weighted images show multiple subcentimeter areas of acute ischemia involving the left frontoparietal lobe. No chronic ischemic insults. Normal intravascular flow voids are present. Skull and face: Calvarial bone marrow is normal in signal. Orbits are normal. Sinuses: Sinuses and mastoids are clear except for mucus retention cyst or polyp in the left maxillary sinus. IMPRESSION: Multiple small, subcentimeter foci of acute ischemia involving the left frontoparietal lobe. Crescentic, signal change involving the retina of the right globe. Recommend close clinical correlation with ophthalmologic examination to exclude the possibility of retinal detachment. Background scattered white matter signal changes, nonspecific however statistically represent chronic microvascular ischemic disease. Dictated by: Rajendra Sullivan M.D. on 02/11/2016 at 12:04 Approved by: Rajendra Sullivan M.D. on 02/11/2016 at 12:04 ADDENDUM: COMPARISON: , CT, CT BRAIN WO CON, 02/10/2016, 16:52. The appearance of the right globe/retina was personally telephoned and discussed with the patient's hospitalist at the time of study interpretation 1230 hrs. 02/11/16. There is a reported history of prior right globe surgery, potentially explaining the appearance although recommend clinical correlation with physical examination findings Dictated by: Rajendra Sullivan M.D. on 02/11/2016 at 12:32 Approved by: Rajendra Sullivan M.D. on 02/11/2016 at 12:32 Date of Service: 02/10/16 1807 PROCEDURE: X-RAY CHEST, TWO VIEWS ([id number]) FINDINGS: Surgical changes and devices: None. Lungs and pleura: No pleural effusions or pneumothorax. Lungs are clear. Mediastinum: Mediastinal contours are normal. Heart size is normal. Bones and chest wall: No suspicious bony abnormalities. Soft tissues appear unremarkable. IMPRESSION: No acute cardiopulmonary disease process Dictated by: Selam Redding MD, PhD on 02/10/2016 at 19:03 Approved by: Selam Redding MD, PhD on 02/10/2016 at 19:03 Date of Service: 02/10/16 1608 PROCEDURE: CT BRAIN WITHOUT CONTRAST ([id number]) FINDINGS: Image quality: Excellent. CSF spaces: Basal cisterns are patent. No extra-axial fluid collections. The ventricles are symmetric in size and shape. Brain: No intracranial bleeds or masses. There is cerebral volume loss for age , with resultant ventricular and sulcal prominence. There are periventricular and deep white matter chronic small vessel ischemic changes. There is intracranial internal carotid artery atherosclerosis. Skull and face: Calvarium and visualized facial bones appear intact, without suspicious lesions. Postsurgical changes noted in the right ocular globe; please correlate with surgical history. Soft tissue density mass noted in the right ocular globe. Sinuses: Scattered opacities noted in the ethmoid air cells. mastoids are clear. IMPRESSION: 1. No acute intracranial disease process. 2. Postsurgical changes in the right ocular globe with soft tissue density mass within the globe. Please correlate with clinical findings and surgical history. Dictated by: eSlam Redding MD, PhD on 02/10/2016 at 17:03 Approved by: Selam Redding MD, PhD on 02/10/2016 at 17:03 ECG 12 Lead Sinus rhythm at a rate of 69 ,no acute abnormalities identified. Cardiac Echo Impression Pending at the time of discharge Brief History This is an 85-year-old male with a history of coronary artery disease who presented to his primary care doctor's office Dr. Porter with complaints of feeling lightheaded over the past 3 days and woke up this morning with right arm and leg weakness. By the time he presented to the emergency room he had no deficits. Patient did stop his aspirin for the past 2 weeks as he was placed on Cipro for prostatitis over the last 3 weeks. Denies any chest pain denies any fevers or chills. Denies any slurred speech or visual disturbances. Any prior history of similar. Denies headache. Eyes any recent falls or trauma. He notes that he did require using his walker to ambulate better because of the right sided weakness. Evaluation in the emergency room includes CT scan of head without contrast which reveals no acute intracranial disease process. There are postsurgical changes in the right ocular globe with soft tissue density mass within the globe. Patient reportedly did have prior surgery there. Hospital Course Acute right sided hemiparesis secondary to stroke per CTA, present on admission -CTA and MRI confirm pt had a stroke. No neurological deficits remaining. All symptoms resolved. -Discussed case with Dr Juarez of Neurology, appreciate her guidance and input. -Neurology Recommendations ----Pt is not a candidate for any interventions, and medical management is more appropriate in this case. ----Starting pt on Plavix 75mg and ASA 81mg daily for 3 months( SAMMPRIS trial) ----Pt to follow up with Dr Juarez in Neurology clinic, first available appointment ----Pt will need tighter control of blood pressure and management of risk factors( to be done outpatient by PCP) -Pt was not adherent with ASA due to report of drug interactions -Continue with atorvastatin, lipid panel pending, will assess if pt needs stronger lipid control -ECHO still pending. Concerned regarding enlarged left atrium and possible risk for Afib. Chronic hyperlipidemia, present on admission, chronic -Continue with atorvastatin, lipid panel pending, will assess if pt needs stronger lipid control Recent history of prostatitis, present on admission, subacute -Continue with Cipro as ordered by primary care -Continue with Flomax also Chronic hypertension, present on admission, chronic -Continue with metoprolol Patient's symptoms had completely resolved by the time of discharge. Results were discussed with him of his studies. He will need close follow-up with neurology. Echocardiogram was pending at the time of discharge. He was discharged home in stable condition. Prescriptions for aspirin and Plavix given discharge, continue atorvastatin. Follow-up with PCP as 1 week, sooner if his condition worsens in anyway. Exam Vital Signs (Last) Date Time Temp Pulse Resp B/P Pulse Ox O2 Delivery O2 Flow Rate FiO2 02/12/16 17:28 37.0 85 18 171/82 97 Room Air Test 02/10/16 16:35 02/10/16 18:45 02/12/16 06:00 Prothrombin Time 10.0sec (8.1-12.5) Prothromb Time International Ratio 0.94ratio Activated Partial Thromboplast Time 26.1sec (22.8-33.0) Hemoglobin A1c 5.7% (4.8-5.6) Magnesium Level 2.1mg/dL (1.6-2.6) Troponin T < 0.010ug/L (0.0-0.011) Hold Jasso Top Tube Received (Received) Urine Color Bloody (YELLOW) Urine Appearance Hazy (CLEAR,HAZY) Urine pH 6.0 (5.0-8.0) Urine Specific [place] 1.015 (1.003-1.035) Urine Protein Negativemg/dL (NEG,TRACE) Urine Glucose (UA) Negativemg/dL (NEGATIVE) Urine Ketones Negativemg/dL (NEGATIVE) Urine Occult Blood Large (NEGATIVE) Urine Nitrite Negative (NEGATIVE) Urine Bilirubin Negative (NEGATIVE) Urine Urobilinogen Normalmg/dL (NORMAL) Urine Leukocyte Esterase Negative (NEGATIVE) Urine RBC 11-50/hpf (0-2) Urine WBC 0-5/hpf (0-5) Urine Epithelial Cells None/hpf (NONE-MOD) Urine Crystals None seen (NONE SEEN) Urine Bacteria Few/hpf (NONE-FEW) Urine Hyaline Casts None/lpf (NONE) Urine Granular Casts None seen (NONE SEEN) Urine Waxy Casts None seen (NONE SEEN) Urine Red Blood Cell Casts None seen (NONE SEEN) Urine White Blood Cell Casts None seen (NONE SEEN) Urine Mucus None seen (None Seen) Urine Trichomonas None seen (NONE SEEN) Urine Yeast None (NONE SEEN) Urinalysis Comment None Urine Culture Reflexed Indicated White Blood Count 4.5th/mm3 (3.8-10.1) Red Blood Count 4.11mil/mm3 (4.40-5.80) Hemoglobin 13.2g/dL (13.8-17.2) Hematocrit 38.9% (41.0-50.0) Mean Corpuscular Volume 94.6fL (81-100) Mean Corpuscular Hemoglobin 32.1pg (27.0-35.0) Mean Corpuscular Hemoglobin Concent 33.9% (32.0-37.0) Red Cell Distribution Width 12.4% (12.3-15.4) Platelet Count 232bil/L (150-400) Neutrophils (%) (Auto) 50.8% (40-74) Lymphocytes (%) (Auto) 31.9% (14-46) Monocytes (%) (Auto) 11.5% (4-12) Eosinophils (%) (Auto) 4.9% (0-5) Basophils (%) (Auto) 0.7% (0-3) Sodium Level 139mEq/L (134-144) Potassium Level 4.2mEq/L (3.5-5.2) Chloride Level 103mEq/L (97-108) Carbon Dioxide Level 26mmol/L (18-29) Blood Urea Nitrogen 14mg/dL (8-27) Creatinine 0.74mg/dL (0.76-1.27) Estimat Glomerular Filtration Rate 107mL/min (>59) Glucose Level 102mg/dL (60-99) Calcium Level 9.0mg/dL (8.5-10.1) Total Bilirubin 0.4mg/dL (0.0-1.2) Aspartate Amino Transf (AST/SGOT) 22U/L (0-50) Alanine Aminotransferase (ALT/SGPT) 22U/L (0-44) Alkaline Phosphatase 70U/L (25-160) Total Protein 6.3g/dL (6.4-8.4) Albumin 3.8g/dL (3.4-5.0) Discharge Medications Discharge Medications Aspirin Chew (Aspirin Chew) 81 Mg Chew 81 MG PO DAILY Prescribed by: YADI BURGOS DO Ciprofloxacin (Cipro) 500 Mg Tablet 500 MG PO BID (Reported) Clopidogrel (Clopidogrel) 75 Mg Tablet 75 MG PO DAILY Prescribed by: YADI BURGOS DO Metoprolol Tartrate (Metoprolol Tartrate) 25 Mg Tablet 12.5 MG PO BID (Reported ) Pravastatin (Pravastatin) 40 Mg Tablet 40 MG PO DAILY (Reported) Tamsulosin (Flomax) 0.4 Mg Capsule 0.4 MG PO DAILY (Reported) Followup Plan Follow-up plan Follow-up with Dr. Will at next available appointment Discharge Diet: Heart Healthy Discharge Activity: Limited until seen by PCP Follow-up with PCP in: 1 week Time spent 65 minutes copies to: Isaac Barrios MD, Brian F DO Feb 12, 2016 18:29
== END 2016-02-12 17:54 | disposition home or self-care (01) ==
LOC: SED 15:56 → MPC 20:29
PROVIDERS: ADMIT Specialist; ATTEND Specialist
DX: I63.9 Cerebral infarction, unspecified (principal); G81.90 Hemiplegia, unspecified affecting unspecified side; I10 Essential (primary) hypertension; E78.5 Hyperlipidemia, unspecified; N41.1 Chronic prostatitis; Z79.2 Long term (current) use of antibiotics; I25.10 Atherosclerotic heart disease of native coronary artery without angina pectoris; Z95.818 Presence of other cardiac implants and grafts
CPT/HCPCS: 36415; 70450; 70496; 70498; 70551; 71020; 80053; 80061; 81000; 83036; 83735; 84484; 85025; 85610; 85730; 87086; 92610; 97001; 99285; G8996; G8997; G8998; J1650; J7030; J7040; Q9967